=== PATIENT | male | born 1940 | race Caucasian/White ===

== ENCOUNTER 2016-10-26 10:39 | Emergency (ER) | payer OTHER, MEDICARE ==
[~2016-10-26] VITALS: Ht 177.8 cm; Wt 84.2 kg
[~2016-10-26 10:39] MED LIST: MELATONIN; ZOLP10TA PO
[2016-10-26 10:40] VITALS: BP 183/81
[2016-10-26 11:40] LABS: BLOOD UREA NITROGEN 31 mg/dL (7-18)
== END 2016-10-26 12:03 | disposition home or self-care (01) ==
LOC: ED 11:57
DX: S76.012A Strain of muscle, fascia and tendon of left hip, initial encounter (principal); Z90.49 Acquired absence of other specified parts of digestive tract; X58.XXXA Exposure to other specified factors, initial encounter; Y93.89 Activity, other specified; Y99.8 Other external cause status; Y92.89 Other specified places as the place of occurrence of the external cause
CPT/HCPCS: 36415; 80048; 82040; 85025; 85610; 85730; 99284

== ENCOUNTER 2017-06-30 21:54 | Emergency (ER) | payer OTHER, MEDICARE ==
[~2017-06-30] VITALS: Ht 177.8 cm; Wt 88.6 kg
[2017-06-30 22:55] VITALS: BP 151/64
== END 2017-06-30 23:05 | disposition home or self-care (01) ==
LOC: ED 22:59
DX: J06.9 Acute upper respiratory infection, unspecified (principal); R06.00 Dyspnea, unspecified
CPT/HCPCS: 36415; 71045; 84484; 93005; 99285

== ENCOUNTER 2017-07-25 09:03 | Emergency (ER) | payer OTHER, MEDICARE ==
[~2017-07-25] VITALS: Ht 177.8 cm; Wt 82.0 kg
[2017-07-25 09:04] VITALS: BP 218/89
== END 2017-07-25 10:18 | disposition home or self-care (01) ==
LOC: ED 10:17
DX: B35.6 Tinea cruris (principal); Z85.038 Personal history of other malignant neoplasm of large intestine
CPT/HCPCS: 99282

== ENCOUNTER 2017-10-09 00:05 | Emergency (ER) | payer OTHER, MEDICARE ==
[~2017-10-09] VITALS: Ht 177.8 cm; Wt 87.0 kg
[2017-10-09 00:06] VITALS: BP 182/81
[2017-10-09 00:48] LABS: BASOPHILS # (AUTO) 0.01 x10^3/uL (0-0.1); BASOPHILS % (AUTO) 0 % (0-1); EOSINOPHILS # (AUTO) 0.24 x10^3/uL (0-0.4); EOSINOPHILS % (AUTO) 4 % (1-7); LYMPHOCYTES # (AUTO) 1.73 x10^3/uL (1-3.4); LYMPHOCYTES % (AUTO) 28 % (22-44); MD NO; MEAN CORPUSCULAR HGB CONC 33.8 g/dL (33.2-36.2); MEAN CORPUSCULAR VOLUME 97.6 fL (81-97); MEAN PLATELET VOLUME 8.2 fL (7.4-10.4); MONOCYTES # (AUTO) 0.65 x10^3/uL (0.2-0.8); MONOCYTES % (AUTO) 11 % (2-9); NEUTROPHILS # (AUTO) 3.54 x10^3/uL (1.8-6.8); NEUTROPHILS % (AUTO) 57 % (42-75); PLATELET COUNT 183 x10^3/uL (130-400); RED BLOOD COUNT 4.47 x10^6/uL (4.38-5.82); RED CELL DISTRIBUTION WIDTH 13.1 % (9.4-14.8)
[2017-10-09] MEDS ORDERED: IBUPROFEN 800 MG TABLET ONE (00:49)
[2017-10-09 00:59] LABS: ALANINE AMINOTRANSFERASE 35 U/L (12-78); ALBUMIN 3.4 g/dL (3.4-5.0); ANION GAP 6 mmol/L (5-15); CALCIUM 9.3 mg/dL (8.5-10.1); CHLORIDE 109 mmol/L (98-107); CREATININE 1.31 mg/dL (0.7-1.3)
[2017-10-09] MEDS ORDERED: IBUPROFEN 200 MG TABLET PO ONE (01:00)
[2017-10-09 01:01] LABS: ALKALINE PHOSPHATASE 80 U/L (45-117); BILIRUBIN,TOTAL 0.4 mg/dL (0.2-1.0); TOTAL PROTEIN 6.6 g/dL (6.4-8.2)
== END 2017-10-09 02:03 | disposition home or self-care (01) ==
LOC: ED 01:04
DX: B34.9 Viral infection, unspecified (principal); J30.1 Allergic rhinitis due to pollen; Z77.22 Contact with and (suspected) exposure to environmental tobacco smoke (acute) (chronic)
CPT/HCPCS: 36415; 71046; 80053; 85025; 99285

== ENCOUNTER 2017-12-25 19:48 | Inpatient (IN) | payer OTHER, MEDICARE ==
[~2017-12-25] VITALS: Ht 177.8 cm; Wt 95.4 kg
[2017-12-25] MEDS ORDERED: ASPIRIN 81 MG TABLET CHEW PO ONE (20:00)
[2017-12-25] MEDS ORDERED: ASPIRIN 81 MG TABLET CHEW ONE (20:23)
[2017-12-25 20:44] LABS: BASOPHILS # (AUTO) 0.03 x10^3/uL (0-0.1); BASOPHILS % (AUTO) 0 % (0-1); EOSINOPHILS # (AUTO) 0.05 x10^3/uL (0-0.4); EOSINOPHILS % (AUTO) 1 % (1-7); LYMPHOCYTES # (AUTO) 1.76 x10^3/uL (1-3.4); LYMPHOCYTES % (AUTO) 19 % (22-44); MD NO; MEAN CORPUSCULAR HEMOGLOBIN 33.4 pg (27.5-34.5); MEAN CORPUSCULAR HGB CONC 34.5 g/dL (33.2-36.2); MEAN CORPUSCULAR VOLUME 96.8 fL (81-97); MEAN PLATELET VOLUME 8.3 fL (7.4-10.4); MONOCYTES # (AUTO) 0.67 x10^3/uL (0.2-0.8); MONOCYTES % (AUTO) 7 % (2-9); NEUTROPHILS # (AUTO) 6.83 x10^3/uL (1.8-6.8); NEUTROPHILS % (AUTO) 73 % (42-75); PLATELET COUNT 217 x10^3/uL (130-400); RED BLOOD COUNT 4.55 x10^6/uL (4.38-5.82); RED CELL DISTRIBUTION WIDTH 12.9 % (9.4-14.8)
[2017-12-25 20:53] LABS: ALBUMIN 3.7 g/dL (3.4-5.0); ANION GAP 6 mmol/L (5-15); CALCIUM 9.2 mg/dL (8.5-10.1); CHLORIDE 109 mmol/L (98-107)
[2017-12-25 20:58] LABS: CREATININE 1.12 mg/dL (0.7-1.3)
[2017-12-25] MEDS ORDERED: HEPARIN 25,000 UNITS/500ML PMX 500 ML IV PRN (21:30)
[2017-12-25] MEDS ORDERED: HEPARIN 5,000 UNITS/ML, 1ML IV PRN (21:30)
[2017-12-25] MEDS ORDERED: HEPARIN 5,000 UNITS/ML, 1ML IV ONE (21:30)
[2017-12-25] MEDS ORDERED: IBUPROFEN 200 MG TABLET PO PRN (22:00)
[2017-12-25] MEDS ORDERED: DOCUSATE 100 MG CAPSULE PO PRN (22:00)
[2017-12-25] MEDS ORDERED: ACETAMINOPHEN 325 MG TABLET PO PRN (22:00)
[2017-12-25] MEDS ORDERED: ENALAPRILAT 1.25 MG/ML, 2ML IVPush PRN (22:00)
[2017-12-25] MEDS ORDERED: ONDANSETRON 2MG/ML, 2ML IVPush PRN (22:00)
[2017-12-25] MEDS ORDERED: ONDANSETRON ODT 4 MG PO PRN (22:00)
[2017-12-25] MEDS ORDERED: BISACODYL 10 MG SUPP PR PRN (22:00)
[2017-12-25] MEDS ORDERED: HEPARIN 25,000 UNITS/500ML PMX 500 ML ONE (22:19)
[2017-12-25] MEDS ORDERED: HEPARIN 5,000 UNITS/ML, 1ML ONE ×2 (22:19→22:26)
[2017-12-25 23:00] VITALS: BP 152/78
[2017-12-26] MEDS: SODIUM CHLORIDE 0.9% 1,000 ML IV SCH ×3 (01:00→17:50)
[2017-12-26 01:11] VITALS: BP 164/82
[2017-12-26 05:52] LABS: CHLORIDE 113 mmol/L (98-107)
[2017-12-26 05:56] LABS: BASOPHILS # (AUTO) 0.03 x10^3/uL (0-0.1); BASOPHILS % (AUTO) 0 % (0-1); EOSINOPHILS # (AUTO) 0.11 x10^3/uL (0-0.4); EOSINOPHILS % (AUTO) 2 % (1-7); LYMPHOCYTES # (AUTO) 2.09 x10^3/uL (1-3.4); LYMPHOCYTES % (AUTO) 29 % (22-44); MD NO; MEAN CORPUSCULAR HEMOGLOBIN 33.2 pg (27.5-34.5); MEAN CORPUSCULAR HGB CONC 34.3 g/dL (33.2-36.2); MEAN CORPUSCULAR VOLUME 96.8 fL (81-97); MONOCYTES # (AUTO) 0.56 x10^3/uL (0.2-0.8); MONOCYTES % (AUTO) 8 % (2-9); NEUTROPHILS # (AUTO) 4.33 x10^3/uL (1.8-6.8); NEUTROPHILS % (AUTO) 61 % (42-75); PLATELET COUNT 191 x10^3/uL (130-400); RED BLOOD COUNT 4.49 x10^6/uL (4.38-5.82); RED CELL DISTRIBUTION WIDTH 13.3 % (9.4-14.8)
[2017-12-26 06:13] LABS: ANION GAP 7 mmol/L (5-15); CALCIUM 9.2 mg/dL (8.5-10.1); CREATININE 0.95 mg/dL (0.7-1.3)
[2017-12-26 06:14] LABS: CHOL/HDL RATIO 3.8; CHOLESTEROL, TOTAL 187 mg/dL (140-239); HDL CHOL % 26 % (26-37); HDL CHOLESTEROL (DIRECT) 49 mg/dL (40-60); LDL CHOLESTEROL,CALCULATED 122 mg/dL (54-169); LDL/HDL RATIO 2.5 (0.5-3.0); TRIGLYCERIDES 78 mg/dL (50-200); VLDL CHOLESTEROL 16 mg/dL (0-25)
[2017-12-26 07:17] VITALS: BP 164/82
[2017-12-26] MEDS: SENNA/DOCUSATE TABLET PO SCH (09:42)
[2017-12-26] MEDS ORDERED: VERAPAMIL 2.5 MG/ML, 2ML ONE ×2 (12:08→17:21)
[2017-12-26] MEDS ORDERED: HEPARIN 1,000 UNITS/ML, 10ML ONE (12:08)
[2017-12-26] MEDS ORDERED: BIVALIRUDIN 250 MG ONE ×3 (12:08→17:21)
[2017-12-26] MEDS ORDERED: NITROGLYCERIN 5 MG/ML, 10ML ONE (12:08)
[2017-12-26] MEDS ORDERED: MIDAZOLAM 1 MG/ML, 5ML ONE ×2 (12:08→17:21)
[2017-12-26] MEDS ORDERED: FENTANYL PF 100 MCG/2ML ONE ×3 (12:08→17:21)
[2017-12-26] MEDS ORDERED: LIDOCAINE-MPF 2%, 2ML ONE (12:09)
[2017-12-26 12:11] VITALS: BP 155/78
[2017-12-26] MEDS ORDERED: CLOPIDOGREL 300 MG TABLET ONE (12:51)
[2017-12-26] MEDS ORDERED: SODIUM CHLORIDE 0.9% 1,000 ML IV SCH (14:07)
[2017-12-26] MEDS ORDERED: BIVALIRUDIN 250 MG in DEXTROSE 5% 50 ML IV SCH (14:07)
[2017-12-26] MEDS ORDERED: TICAGRELOR 90 MG TABLET ONE (14:08)
[2017-12-26 14:35] VITALS: BP 173/91
[2017-12-26] MEDS ORDERED: FUROSEMIDE 20 MG/2 ML ONE (17:09)
[2017-12-26] MEDS ORDERED: FUROSEMIDE 20 MG/2 ML IV ONE (17:30)
[2017-12-26] MEDS ORDERED: PROMETHAZINE 25 MG/ML, 1ML IM PRN (18:00)
[2017-12-26 19:18] VITALS: BP 107/52
[2017-12-26] MEDS: TICAGRELOR 90 MG TABLET PO SCH (21:25)
[2017-12-27 00:44] VITALS: BP 137/74
[2017-12-27 04:56] LABS: ALBUMIN 3.2 g/dL (3.4-5.0); ANION GAP 7 mmol/L (5-15); CALCIUM 8.7 mg/dL (8.5-10.1); CHLORIDE 111 mmol/L (98-107)
[2017-12-27 04:57] LABS: CREATININE 1.23 mg/dL (0.7-1.3)
[2017-12-27 07:31] VITALS: BP 134/71
[2017-12-27] MEDS ORDERED: ASPIRIN 81 MG TABLET EC PO SCH (08:30)
[2017-12-27] MEDS ORDERED: METOPROLOL TARTRATE 25 MG TABLET PO SCH (08:30)
[2017-12-27] MEDS: TICAGRELOR 90 MG TABLET PO SCH (08:45)
[2017-12-27] MEDS: SENNA/DOCUSATE TABLET PO SCH (08:46)
[2017-12-27] MEDS ORDERED: TICA90TA PO (11:44)
[2017-12-27] MEDS ORDERED: ATOR-2 PO (11:44)
[2017-12-27] MEDS ORDERED: ASPI-621 PO (11:44)
[2017-12-27] MEDS ORDERED: ATORVASTATIN 80 MG TABLET PO SCH (21:00)
== END 2017-12-27 14:17 | disposition home or self-care (01) | DRG 247 ==
LOC: ED 20:10 → OBSVTOIN 22:00 → EDIP 22:00 → 5SO 22:40
PROVIDERS: ADMIT Hospitalist; ATTEND Hospitalist
PROC: 4A023N7 Measurement of Cardiac Sampling and Pressure, Left Heart, Percutaneous Approach (ICD-10-PCS; principal; 2017-12-26)
PROC: 027036Z Dilation of Coronary Artery, One Artery with Three Drug-eluting Intraluminal Devices, Percutaneous Approach (ICD-10-PCS; 2017-12-26)
PROC: B2111ZZ Fluoroscopy of Multiple Coronary Arteries using Low Osmolar Contrast (ICD-10-PCS; 2017-12-26)
PROC: B2151ZZ Fluoroscopy of Left Heart using Low Osmolar Contrast (ICD-10-PCS; 2017-12-26)
PROC: B240ZZ3 Ultrasonography of Single Coronary Artery, Intravascular (ICD-10-PCS; 2017-12-26)
DX: I21.4 Non-ST elevation (NSTEMI) myocardial infarction (principal); E78.5 Hyperlipidemia, unspecified; E87.8 Other disorders of electrolyte and fluid balance, not elsewhere classified; I11.9 Hypertensive heart disease without heart failure; I25.10 Atherosclerotic heart disease of native coronary artery without angina pectoris; I45.10 Unspecified right bundle-branch block; Z79.82 Long term (current) use of aspirin; Z80.9 Family history of malignant neoplasm, unspecified; Z83.3 Family history of diabetes mellitus; Z85.038 Personal history of other malignant neoplasm of large intestine; Z87.891 Personal history of nicotine dependence; R73.9 Hyperglycemia, unspecified
CPT/HCPCS: 36415; 92978; 93458; 99291; C9600; 71045; 80048; 80061; 82040; 83735; 84100; 84443; 84484; 85025; 85520; 93005; 96374; 99156; 99157; C1753; C1769; C1894; J0583; J1644; J2250; J2405; J2550; J3010; J3490; C1725; C1874; C1887; J1940; J7030; Q9967

== ENCOUNTER 2017-12-27 19:58 | Emergency (ER) | payer OTHER, MEDICARE ==
[~2017-12-27] VITALS: Ht 177.8 cm; Wt 80.0 kg
[~2017-12-27 19:58] MED LIST changes: +ASPI-621 PO; +ATOR-2 PO; +TICA90TA PO
[2017-12-27] MEDS ORDERED: ASPIRIN 81 MG TABLET CHEW PO ONE (20:30)
[2017-12-27 20:47] LABS: BASOPHILS # (AUTO) 0.02 x10^3/uL (0-0.1); BASOPHILS % (AUTO) 0 % (0-1); EOSINOPHILS # (AUTO) 0.19 x10^3/uL (0-0.4); EOSINOPHILS % (AUTO) 3 % (1-7); LYMPHOCYTES # (AUTO) 1.03 x10^3/uL (1-3.4); LYMPHOCYTES % (AUTO) 13 % (22-44); MD NO; MEAN CORPUSCULAR HEMOGLOBIN 33.3 pg (27.5-34.5); MEAN CORPUSCULAR HGB CONC 34.1 g/dL (33.2-36.2); MEAN CORPUSCULAR VOLUME 97.6 fL (81-97); MEAN PLATELET VOLUME 8.2 fL (7.4-10.4); MONOCYTES # (AUTO) 0.52 x10^3/uL (0.2-0.8); MONOCYTES % (AUTO) 7 % (2-9); NEUTROPHILS % (AUTO) 77 % (42-75); PLATELET COUNT 180 x10^3/uL (130-400); RED BLOOD COUNT 4.24 x10^6/uL (4.38-5.82); RED CELL DISTRIBUTION WIDTH 13.1 % (9.4-14.8)
[2017-12-27] MEDS ORDERED: ASPIRIN 81 MG TABLET EC ONE (20:51)
[2017-12-27 20:54] LABS: ALBUMIN 3.2 g/dL (3.4-5.0); ANION GAP 7 mmol/L (5-15); CHLORIDE 109 mmol/L (98-107)
[2017-12-27] MEDS ORDERED: ASPIRIN 81 MG TABLET CHEW ONE (20:54)
[2017-12-27 20:55] VITALS: BP 129/68
== END 2017-12-27 21:40 | disposition home or self-care (01) ==
LOC: ED 20:28
DX: K21.9 Gastro-esophageal reflux disease without esophagitis (principal); I10 Essential (primary) hypertension
CPT/HCPCS: 36415; 71046; 80048; 82040; 83880; 84484; 85025; 93005; 99285

== ENCOUNTER 2018-01-13 04:15 | Emergency (ER) | payer OTHER, MEDICARE ==
[~2018-01-13] VITALS: Ht 177.8 cm; Wt 86.5 kg
[2018-01-13] MEDS ORDERED: ASPIRIN 81 MG TABLET CHEW ONE (04:44)
[2018-01-13] MEDS ORDERED: ASPIRIN 81 MG TABLET CHEW PO ONE (05:00)
[2018-01-13 05:34] LABS: BASOPHILS # (AUTO) 0.03 x10^3/uL (0-0.1); BASOPHILS % (AUTO) 0 % (0-1); EOSINOPHILS # (AUTO) 0.18 x10^3/uL (0-0.4); EOSINOPHILS % (AUTO) 3 % (1-7); LYMPHOCYTES # (AUTO) 1.57 x10^3/uL (1-3.4); LYMPHOCYTES % (AUTO) 23 % (22-44); MD NO; MEAN CORPUSCULAR HGB CONC 34.2 g/dL (33.2-36.2); MEAN CORPUSCULAR VOLUME 96.6 fL (81-97); MEAN PLATELET VOLUME 8.2 fL (7.4-10.4); MONOCYTES # (AUTO) 0.45 x10^3/uL (0.2-0.8); MONOCYTES % (AUTO) 7 % (2-9); NEUTROPHILS # (AUTO) 4.54 x10^3/uL (1.8-6.8); NEUTROPHILS % (AUTO) 67 % (42-75); PLATELET COUNT 183 x10^3/uL (130-400); RED BLOOD COUNT 4.29 x10^6/uL (4.38-5.82); RED CELL DISTRIBUTION WIDTH 12.5 % (9.4-14.8)
[2018-01-13 05:44] LABS: ALBUMIN 3.5 g/dL (3.4-5.0); ANION GAP 7 mmol/L (5-15); CALCIUM 9.3 mg/dL (8.5-10.1); CHLORIDE 112 mmol/L (98-107); CREATININE 1.04 mg/dL (0.7-1.3)
[2018-01-13 05:48] LABS: TROPONIN I 0.025 ng/mL (0.000-0.045)
[2018-01-13 06:29] VITALS: BP 133/91
== END 2018-01-13 06:35 | disposition home or self-care (01) ==
LOC: ED 04:37
DX: R07.89 Other chest pain (principal); R06.00 Dyspnea, unspecified; K21.9 Gastro-esophageal reflux disease without esophagitis; I25.10 Atherosclerotic heart disease of native coronary artery without angina pectoris; I10 Essential (primary) hypertension
CPT/HCPCS: 36415; 71045; 80048; 82040; 83880; 84484; 85025; 93005; 99285

== ENCOUNTER 2018-01-15 08:53 | Emergency (ER) | payer OTHER, MEDICARE ==
[~2018-01-15] VITALS: Ht 177.8 cm; Wt 85.5 kg
[2018-01-15 09:34] VITALS: BP 199/69
== END 2018-01-15 10:23 | disposition home or self-care (01) ==
LOC: ED 09:39
DX: R07.89 Other chest pain (principal); K21.9 Gastro-esophageal reflux disease without esophagitis; I25.10 Atherosclerotic heart disease of native coronary artery without angina pectoris; I25.2 Old myocardial infarction; I10 Essential (primary) hypertension; Z85.038 Personal history of other malignant neoplasm of large intestine; Z85.46 Personal history of malignant neoplasm of prostate
CPT/HCPCS: 36415; 84484; 93005; 99285

== ENCOUNTER 2018-01-22 02:44 | Emergency (ER) | payer OTHER, MEDICARE ==
[~2018-01-22] VITALS: Ht 177.8 cm; Wt 80.0 kg
[2018-01-22 03:25] LABS: BASOPHILS # (AUTO) 0.02 x10^3/uL (0-0.1); BASOPHILS % (AUTO) 0 % (0-1); EOSINOPHILS # (AUTO) 0.21 x10^3/uL (0-0.4); EOSINOPHILS % (AUTO) 3 % (1-7); LYMPHOCYTES # (AUTO) 1.32 x10^3/uL (1-3.4); LYMPHOCYTES % (AUTO) 20 % (22-44); MD NO; MEAN CORPUSCULAR HEMOGLOBIN 33.6 pg (27.5-34.5); MEAN CORPUSCULAR HGB CONC 34.3 g/dL (33.2-36.2); MEAN PLATELET VOLUME 8.2 fL (7.4-10.4); MONOCYTES # (AUTO) 0.48 x10^3/uL (0.2-0.8); MONOCYTES % (AUTO) 7 % (2-9); NEUTROPHILS # (AUTO) 4.58 x10^3/uL (1.8-6.8); NEUTROPHILS % (AUTO) 69 % (42-75); PLATELET COUNT 170 x10^3/uL (130-400); RED BLOOD COUNT 4.27 x10^6/uL (4.38-5.82); RED CELL DISTRIBUTION WIDTH 12.8 % (9.4-14.8)
[2018-01-22 03:34] LABS: ALBUMIN 3.4 g/dL (3.4-5.0); ANION GAP 6 mmol/L (5-15); CALCIUM 9.3 mg/dL (8.5-10.1); CHLORIDE 111 mmol/L (98-107)
[2018-01-22 05:17] LABS: TROPONIN I 0.036 ng/mL (0.000-0.045)
[2018-01-22 05:37] VITALS: BP 125/52
== END 2018-01-22 05:38 | disposition home or self-care (01) ==
LOC: ED 03:39
DX: R11.0 Nausea (principal); K21.9 Gastro-esophageal reflux disease without esophagitis; I25.10 Atherosclerotic heart disease of native coronary artery without angina pectoris
CPT/HCPCS: 36415; 80048; 82040; 84484; 85025; 93005; 99285

== ENCOUNTER 2018-05-30 21:07 | Emergency (ER) | payer OTHER, MEDICARE ==
[~2018-05-30] VITALS: Ht 172.7 cm; Wt 89.9 kg
[~2018-05-30 21:07] MED LIST changes: -ASPI-621 PO; +ASPI81TA45 PO
[2018-05-30 21:11] VITALS: BP 162/67
--- NOTE | 2018-05-30 21:43 | NUR ---
Pt arrives to ed with c/o of epigastric pain x3 hours. pt rates pain a 6/10 at this time. Pt reports that his pain is worse after earing or drinking. Describes the pain as a sharp and buring pain. Pt denies sob, palpatations, n/v/d, diaphoresis. Pt connected to all monitors and call light in reach. Awaiting further orders. Call light in reach.
[2018-05-30] MEDS ORDERED: MAALOX/HYOSCYAMINE/LIDOCAINE 45 ML BTL ONE (21:46)
[2018-05-30] MEDS ORDERED: MAALOX/HYOSCYAMINE/LIDOCAINE 45 ML BTL PO ONE (22:00)
[2018-05-30 22:01] LABS: BASOPHILS # (AUTO) 0.04 x10^3/uL (0-0.1); BASOPHILS % (AUTO) 0 % (0-1); EOSINOPHILS # (AUTO) 0.19 x10^3/uL (0-0.4); EOSINOPHILS % (AUTO) 2 % (1-7); LYMPHOCYTES # (AUTO) 1.78 x10^3/uL (1-3.4); LYMPHOCYTES % (AUTO) 20 % (22-44); MD NO; MEAN CORPUSCULAR HEMOGLOBIN 33.1 pg (27.5-34.5); MEAN CORPUSCULAR HGB CONC 34.2 g/dL (33.2-36.2); MEAN CORPUSCULAR VOLUME 96.6 fL (81-97); MEAN PLATELET VOLUME 8.1 fL (7.4-10.4); MONOCYTES # (AUTO) 0.59 x10^3/uL (0.2-0.8); MONOCYTES % (AUTO) 7 % (2-9); NEUTROPHILS # (AUTO) 6.15 x10^3/uL (1.8-6.8); NEUTROPHILS % (AUTO) 70 % (42-75); PLATELET COUNT 220 x10^3/uL (130-400); RED CELL DISTRIBUTION WIDTH 12.2 % (9.4-14.8)
[2018-05-30 22:13] LABS: ANION GAP 5 mmol/L (5-15); CALCIUM 8.8 mg/dL (8.5-10.1); CHLORIDE 108 mmol/L (98-107); CREATININE 0.98 mg/dL (0.7-1.3)
[2018-05-30 22:14] LABS: ALANINE AMINOTRANSFERASE 30 U/L (12-78); ALBUMIN 3.3 g/dL (3.4-5.0)
[2018-05-30 22:17] LABS: ALKALINE PHOSPHATASE 96 U/L (45-117); BILIRUBIN,TOTAL 0.3 mg/dL (0.2-1.0); TOTAL PROTEIN 6.4 g/dL (6.4-8.2); TROPONIN I 0.038 ng/mL (0.000-0.045)
--- NOTE | 2018-05-30 23:26 | NUR ---
Patient/Caregiver given discharge instructions and they have confirmed that they understand the instructions. Patient ambulatory with steady gait.
== END 2018-05-30 23:28 | disposition home or self-care (01) ==
LOC: ED 22:30
DX: R07.89 Other chest pain (principal); K21.9 Gastro-esophageal reflux disease without esophagitis; I25.10 Atherosclerotic heart disease of native coronary artery without angina pectoris; I10 Essential (primary) hypertension; I25.2 Old myocardial infarction; Z85.46 Personal history of malignant neoplasm of prostate; Z85.038 Personal history of other malignant neoplasm of large intestine
CPT/HCPCS: 36415; 71045; 80053; 84484; 85025; 93005; 99284

== ENCOUNTER 2018-07-26 13:37 | Outpatient (CLI) | payer OTHER, MEDICARE | END 2018-07-26 23:59 | disposition home or self-care (01) | LOC: CFH 13:37 | PROVIDERS: ATTEND Internal Medicine Cardiovascular Disease | DX: I08.0 Rheumatic disorders of both mitral and aortic valves (principal); I11.9 Hypertensive heart disease without heart failure; I25.10 Atherosclerotic heart disease of native coronary artery without angina pectoris; E78.5 Hyperlipidemia, unspecified; Z95.5 Presence of coronary angioplasty implant and graft | CPT/HCPCS: 93306 ==

== ENCOUNTER 2018-10-12 14:40 | Emergency (ER) | payer OTHER, MEDICARE ==
[2018-10-12 15:17] LABS: BASOPHILS # (AUTO) 0.02 x10^3/uL (0-0.1); BASOPHILS % (AUTO) 0 % (0-1); EOSINOPHILS # (AUTO) 0.03 x10^3/uL (0-0.4); EOSINOPHILS % (AUTO) 0 % (1-7); LYMPHOCYTES # (AUTO) 1.27 x10^3/uL (1-3.4); LYMPHOCYTES % (AUTO) 12 % (22-44); MD NO; MEAN CORPUSCULAR HEMOGLOBIN 32.4 pg (27.5-34.5); MEAN CORPUSCULAR HGB CONC 32.8 g/dL (33.2-36.2); MEAN CORPUSCULAR VOLUME 98.6 fL (81-97); MEAN PLATELET VOLUME 8.2 fL (7.4-10.4); MONOCYTES # (AUTO) 0.61 x10^3/uL (0.2-0.8); MONOCYTES % (AUTO) 6 % (2-9); NEUTROPHILS # (AUTO) 8.29 x10^3/uL (1.8-6.8); NEUTROPHILS % (AUTO) 81 % (42-75); PLATELET COUNT 187 x10^3/uL (130-400); RED BLOOD COUNT 4.79 x10^6/uL (4.38-5.82); RED CELL DISTRIBUTION WIDTH 13.7 % (9.4-14.8)
[2018-10-12 15:28] LABS: ALANINE AMINOTRANSFERASE 30 U/L (12-78); ALBUMIN 3.9 g/dL (3.4-5.0); ANION GAP 9 mmol/L (5-15); CALCIUM 9.9 mg/dL (8.5-10.1); CHLORIDE 110 mmol/L (98-107); CREATININE 1.26 mg/dL (0.7-1.3)
[2018-10-12 15:32] LABS: ALKALINE PHOSPHATASE 68 U/L (45-117); BILIRUBIN,TOTAL 0.6 mg/dL (0.2-1.0); TROPONIN I 0.035 ng/mL (0.000-0.045)
--- NOTE | 2018-10-12 15:40 | NUR ---
ALL RESULTS BACK AT THIS TIME, CHART UP FOR RECHECK
[2018-10-12 16:14] VITALS: BP 113/65
== END 2018-10-12 16:21 | disposition home or self-care (01) ==
LOC: ED 16:20
DX: R07.2 Precordial pain (principal); I25.2 Old myocardial infarction; I25.10 Atherosclerotic heart disease of native coronary artery without angina pectoris; K21.9 Gastro-esophageal reflux disease without esophagitis; I10 Essential (primary) hypertension; Z85.038 Personal history of other malignant neoplasm of large intestine; Z90.49 Acquired absence of other specified parts of digestive tract
CPT/HCPCS: 36415; 71045; 80053; 84484; 85025; 93005; 99284

== ENCOUNTER → 2019-04-11 | Outpatient (CLI) | payer OTHER, MEDICARE | END | disposition home or self-care (01) | LOC: CVU 10:23 | PROVIDERS: ATTEND Internal Medicine Cardiovascular Disease | DX: I08.0 Rheumatic disorders of both mitral and aortic valves (principal) | CPT/HCPCS: 0399T; 93306 ==

== ENCOUNTER 2019-10-29 07:55 | Emergency (ER) | payer OTHER, MEDICARE ==
[~2019-10-29] VITALS: Ht 177.8 cm; Wt 82.0 kg
[2019-10-29 08:33] VITALS: BP 173/94
== END 2019-10-29 09:32 | disposition home or self-care (01) ==
LOC: ED 09:17
DX: B34.9 Viral infection, unspecified (principal); Z20.828 Contact with and (suspected) exposure to other viral communicable diseases; R50.9 Fever, unspecified; R06.00 Dyspnea, unspecified; M79.10 Myalgia, unspecified site; I25.10 Atherosclerotic heart disease of native coronary artery without angina pectoris; I25.2 Old myocardial infarction; Z90.49 Acquired absence of other specified parts of digestive tract; Z85.46 Personal history of malignant neoplasm of prostate
CPT/HCPCS: 99283; U0001

== ENCOUNTER → 2020-11-20 | Outpatient (CLI) | payer OTHER, MEDICARE | END | disposition home or self-care (01) | LOC: CVU 11:49 | PROVIDERS: ATTEND Internal Medicine Cardiovascular Disease | DX: I08.0 Rheumatic disorders of both mitral and aortic valves (principal); I25.5 Ischemic cardiomyopathy | CPT/HCPCS: 93306; 93356 ==